=== PATIENT | female | born 1955 | race American Indian/Alaskan Native ===

== ENCOUNTER 2021-10-18 09:06 | Emergency (ER) | payer OTHER ==
[2021-10-18 09:27] VITALS: BP 134/75
[2021-10-18] MEDS ORDERED: KETOROLAC 60 MG/2 ML INJ IM ONE (11:45)
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
== END 2021-10-18 16:38 | disposition home or self-care (01) ==
LOC: ED 09:06
DX: M54.2 Cervicalgia (principal); Z79.899 Other long term (current) drug therapy; V87.7XXA Person injured in collision between other specified motor vehicles (traffic), initial encounter; Y93.89 Activity, other specified; Y92.488 Other paved roadways as the place of occurrence of the external cause; Y99.8 Other external cause status
CPT/HCPCS: 72125; 96372; 99283; J1885